=== PATIENT | female | born 1945 | race Caucasian/White ===

== ENCOUNTER 2024-09-09 15:38 | Emergency (ER) | payer MEDICARE, BC ==
[~2024-09-09] VITALS: Ht 162.6 cm; Wt 75.0 kg
[2024-09-09 15:40] VITALS: BP 116/81; PULSE 71; RESP 16; O2SAT 93
[2024-09-09] MEDS: LIDOcaine 1% W/epiNEPHrine 1:100,000 20ml vial SQ STA (15:45)
[2024-09-09] MEDS: LORazepam 0.5 MG tablet PO STA (17:44)
[2024-09-09 19:57] VITALS: TEMP 97.9
== END 2024-09-09 19:59 | disposition home or self-care (01) ==
LOC: ER 15:39
DX: S01.511A Laceration without foreign body of lip, initial encounter (principal); M25.532 Pain in left wrist; M25.531 Pain in right wrist; Z88.5 Allergy status to narcotic agent; W01.0XXA Fall on same level from slipping, tripping and stumbling without subsequent striking against object, initial encounter; Y93.89 Activity, other specified; Y92.89 Other specified places as the place of occurrence of the external cause; Y99.8 Other external cause status
CPT/HCPCS: 12011; 73110; 99284; A6402; Z7610; A6449

== ENCOUNTER 2024-09-24 09:42 | Outpatient (CLI) | payer MEDICARE, BC ==
[2024-09-24] MEDS ORDERED: iohexol 300mg/ml 100ml inj. ONE (10:20)
== END 2024-09-24 23:59 | disposition home or self-care (01) ==
LOC: RAD 09:42
PROVIDERS: ATTEND Nurse Practitioner Family
DX: R10.9 Unspecified abdominal pain (principal); M51.379 Other intervertebral disc degeneration, lumbosacral region without mention of lumbar back pain or lower extremity pain; Z90.710 Acquired absence of both cervix and uterus
CPT/HCPCS: 74178; Q9967